=== PATIENT | female | born 1965 | race Caucasian/White ===

== ENCOUNTER 2020-07-17 16:32 | Outpatient (REF) | payer OTHER, SELFPAY | END 2020-07-17 16:33 | disposition home or self-care (01) | LOC: HO.LAB 16:32 | PROVIDERS: PCP Internal Medicine; Visit Provider Internal Medicine | DX: Z20.828 Contact with and (suspected) exposure to other viral communicable diseases (principal) | CPT/HCPCS: 36415; 87635 ==

== ENCOUNTER 2022-04-23 09:50 | Emergency (ER) | payer BC, SELFPAY ==
[2022-04-23 09:52] VITALS: BP 156/91; PULSE 72; RESP 19; TEMP 36.6; O2SAT 98; BMI 41.1
[2022-04-23 15:27] VITALS: BP 131/77; PULSE 64; RESP 18; TEMP 36.9
--- NOTE | 2022-04-23 15:46 | ED.HA ---
HPI - Headache General Chief Complaint: Headache Stated Complaint: Migraine Time Seen by Provider: 04/23/22 15:11 Source: patient Mode of arrival: ambulatory Limitations: no limitations History of Present Illness HPI Narrative: patient comes emergency room complaining of a migraine headache for 2 days. Patient took sumatriptan without any relief. Patient states that usually sumatriptan is able to help with her migraine headaches, takes propanolol to prevent migraines. Earlier today she was very nauseous, no vomiting. Patient states the headache is on the left side. Related Data Previous Rx's Medication Instructions Recorded ketorolac 10 mg tablet 10 mg PO TID PRN pain #7 tabs 04/23/22 metoclopramide HCl 10 mg tablet 10 mg PO BID PRN nausea and 04/23/22 (Reglan) vomiting #7 tabs Allergies Allergy/AdvReac Type Severity Reaction Status Date / Time No Known Allergies Allergy Unverified 06/29/20 19:08 [No Known Allergies*] Review of Systems Review of Systems: Constitutional : No Weight loss, No Fever, No Chills, No Night Sweats, No Fatigue, No Malaise ENT/Mouth : No Hearing loss, No Ear Pain, No Nasal Congestion, No Sinus Pain, No Hoarseness, No sore throat, No Rhinorrhea, No Swallowing Difficulty Eyes: No Eye Pain, No Swelling, No Redness, No Foreign Body, No Discharge, No Vision Changes Cardiovascular : No Chest Pain, No SOB, No Dyspnea on Exertion, No Orthopnea, No Edema, No Palpitations Respiratory : No Cough, No Sputum, No Wheezing, No Smoke Exposure, No Dyspnea Gastrointestinal : No Nausea, No Vomiting, No Diarrhea, No Constipation, No abdominal Pain, No Hematochezia, No Melena Genitourinary : no irregular bleeding, No Dysuria, No Urinary Frequency, No Hematuria, No Urinary Incontinence, No Urgency, No Flank Pain, No Urinary Flow Changes, No Hesitancy Musculoskeletal : No joint pain, No Myalgias, No Joint Swelling Skin : No Skin Lesions, No rash Neuro : No Weakness, No Numbness, No Paresthesias, No Loss of Consciousness, No Dizziness, Complaining of a left-sided migraine headache Psych : No Anxiety/Panic, No Depression, No SI/HI/AH/VH, No Social Issues, Heme/Lymph: No Bruising, No Bleeding,No Lymphadenopathy Endocrine : No Polyuria, No Polydipsia, No Temperature Intolerance [facility] Past Medical History Medical History Migraine headache Social History Social History Alcohol intake: never Patient Tobacco Use Status: Former Tobacco user Use of substances other than those prescribed or required for medical reasons: No Advance Directives: Yes Advance Directives Information Provided: Yes Advance Directives on File: No Patient : No Physical Exam Vital Signs: Vital Signs: Last Vital Signs Temp 98.4 F 04/23/22 15:27 Pulse 64 04/23/22 15:27 Resp 18 04/23/22 15:27 BP 131/77 04/23/22 15:27 Pulse Ox 98 04/23/22 09:52 O2 Del Method 04/23/22 15:27 O2 Flow Rate 96 04/23/22 15:27 BMI result Body Mass Index 41.1 Const: Other: Appearance: Alert. Oriented X3. looks uncomfortable, tearful Eyes: Pupils equal, round and reactive to light. ENT: Pharynx normal. Neck: Normal inspection. Neck supple. No lymph nodes noted. No crepitus CVS: Normal heart rate and rhythm. Pulses normal. Normal S1 and S2 Respiratory: No respiratory distress. Breath sounds normal. No Wheezing. No rales Abdomen: Soft and nontender. No rigidity. No distention. Skin: Skin warm and dry. Normal skin color. Normal skin turgor. Extremities: No lower extremity edema. No Lacerations. No Rash Neuro: Oriented X 3. No motor deficit. No sensory deficit. Moving all extremities. No slurred speech. CN 2 through 12 grossly intact Psych: calm, cooperative, tearful Course Course Course Narrative: patient is getting IV fluids, Toradol, Reglan and diphenhydramine after treatment, patient states she feels much better, patient has a 1 or 2/10 headache, no longer crying, overall feels good Discharge Plan Discharge Clinical Impression: Migraine Patient Disposition: Home, Self-Care Instructions: Migraine Headache (ED) Additional Instructions: Please follow-up with your primary care physician tomorrow. If you have any worsening or new symptoms, please return to the emergency room or call 911 Prescriptions: New ketorolac 10 mg tablet 10 mg PO TID PRN (Reason: pain) Qty: 7 0RF Rx Instructions: do not use this medication with NSAIDs /Aleve /ibuprofen, only Tylenol or sumatriptan metoclopramide HCl [Reglan] 10 mg tablet 10 mg PO BID PRN (Reason: nausea and vomiting) Qty: 7 0RF Rx Instructions: take together with Toradol/ketorolac p.r.n. migraine headache
[2022-04-23] MEDS: Ketorolac Tromethamine 30 MG/ML VIAL IVPUSH (15:48)
[2022-04-23] MEDS: Metoclopramide HCl 10 MG/2 ML VIAL IVPUSH (15:49)
[2022-04-23] MEDS: 0.9 % Sodium Chloride 1,000 ML 999 ML IVCONT (15:49)
[2022-04-23] MEDS: diphenhydrAMINE HCL 50 MG/ML VIAL 25 MG IVPUSH (15:49)
[2022-04-23 18:04] VITALS: BP 127/72; PULSE 73; RESP 16; TEMP 36.9; O2SAT 97
== END 2022-04-23 18:48 | disposition home or self-care (01) ==
PROVIDERS: Emergency Provider Emergency Medicine; PCP Internal Medicine
DX: G43.909 Migraine, unspecified, not intractable, without status migrainosus (principal); Z79.899 Other long term (current) drug therapy; Z87.891 Personal history of nicotine dependence
CPT/HCPCS: 96361; 96374; 96375; 99284; J1200; J1885; J2765

== ENCOUNTER 2025-08-03 09:30 | Outpatient (AMB) | payer BC, SELFPAY ==
--- NOTE | 2025-08-03 09:36 | MHC.OFFVIS ---
Intake Visit Reasons: discuss botox injection Allergies No Known Allergies (No Known Allergies*) Allergy (Unverified 11/13/22 16:14) HPI Comments Details: 59 yo woman with h/o neck surgery probably for cervical fusion, renal stones, anxiety, obesity, TEENA On CPAP, and chronic intractable frequent migraine type headache. She was unable to tolerate CPAP machine and was not using it. 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 Mcdowell. She is presenting with chronic migraines. The migraines have increased in frequency, with approximately 20 days of headaches each month. Pain typically localizes to the back of the head, with symptoms severe enough to cause nocturnal awakenings. Pressure sensations are also reported. The patient has trialed several prophylactic medications including Topamax, propranolol, and Depakote without significant relief. Occipital nerve blocks previously provided short-term alleviation. Additionally, the patient has a history of meningioma, which has been stable without significant growth. The management plan has been to monitor this condition, with another check scheduled in a year to a year and a half. The meningioma has not caused symptoms, and surgical removal is not currently planned. The patient is concerned about her family history, as her mother at 50 from a brain tumor. This familial history increases her anxiety about her own condition, particularly given the recent pattern of her migraines. [facility] Medical History (Updated 08/03/25 @ 09:43 by Jourdan Mehta MD) Anxiety Insomnia Hypothyroid Migraine headache Social History (System 11/13/22 @ 16:14 by Minnie Jaffe) Alcohol intake: never Patient Tobacco Use Status: Former Tobacco user Review of Systems Narrative - Neurological: Reports chronic migraines with approximately 20 headaches per month and pressure sensations in the head. - Family History: Positive for brain tumor in the mother. - Medications: Reports unsuccessful trials of Topamax, propranolol, and Depakote. Office Meds methylprednisolone acetate 40 mg/mL suspension for injection Performing Provider: Jourdan Mehta MD Performing Location: [facility] Administered by: Jourdan Mehta MD on 08/03/25 10:01 Dose Route Admin Location Dispensed Lot Number Expiration Date [facility] [employer] 40 mg IM 1 mL [id number] [employer] Total Dispensed Waste 1 mL 0 % Assessment & Plan Assessment & Plan (1) Migraine headache: Comment: Meds tried: Topiramate, propranolol, sumatriptan, verapamil, Depakote, Emgality MRI C spine at [facility] in Jun 2024: C 5/6 central disc with flattening of cord but mod stenosis and no cord signal. MRI brain [facility] at [facility] in Aug 2023: R CP angle meningioma Code(s): G43.909 - Migraine, unspecified, not intractable, without status migrainosus Category: Medical Qualifiers: Intractability: not intractable Migraine type: without aura Status migrainosus presence: without status migrainosus Qualified Code(s): G43.009 - Migraine without aura, not intractable, without status migrainosus (2) Meningioma: Code(s): D32.9 - Benign neoplasm of meninges, unspecified Category: Medical (3) Occipital neuralgia: Code(s): M54.81 - Occipital neuralgia Category: Medical Qualifiers: Laterality: bilateral Qualified Code(s): M54.81 - Occipital neuralgia Plan I engaged in a discussion with the patient regarding her chronic migraines and the unsuccessful outcomes from previous pharmacological interventions, such as Topamax, propranolol, and Depakote. Given the nature of insurance protocols, making a case for Botox as a preventive treatment is warranted. I addressed her meningioma's current asymptomatic state and reiterated the plan for periodic assessments. I also acknowledged her familial history of brain tumors and the anxiety surrounding it. I informed her about the necessity of meeting insurance prerequisites, and we will push forward with her treatment accordingly, emphasizing the continuation of occipital nerve block injections to manage pain in the interim. Orders: Orders AMB Methylprednisolone Acetate Injection Today M54.81 - Occipital neuralgia Medications: Changed From sumatriptan succinate take 1 tab at onset of headache; if no relief may repeat 1 tab after at least 2 hrs; max = 4 tabs/24 hr PO 10 tabs 0RF To sumatriptan succinate 50 mg orally one a day as needed; 10 tabs 5RF Coding Level of Care Code Est Pt Level 4 (94365) Diagnoses Migraine without aura and without status migrainosus, not intractable G43.009 Intractability: not intractable Migraine type: without aura Status migrainosus presence: without status migrainosus Meningioma D32.9 Bilateral occipital neuralgia M54.81 Laterality: bilateral
--- OUTSIDE RECORDS SUMMARY | 2025-08-03 10:54 | XMS_ITS | Clinical Summary ---
Author Organization [facility] Address [address] [place] [id number] Phone Care Team Providers Care Fern Gatherer Name Role Phone Jenelle Rosas MD Primary Care Prov ider Social History Tobacco Use Types Packs/Day Years Used Date Smoking Tobacco: Never Assessed Comments Unknown Sex and Gender Information Value Date Recorded Sex Assigned at Not on file Legal Sex Female 11:20 AM EDT Gender Identity Not on file Sexual Orientation Not on file Plan of Treatment Not on file Medical Devices Not on file Insurance [employer] [place] [employer] PPO [place] [address] [place] [address] MEDICARE PPO BLUE REPLACEMENT [employer] [place] [employer] BLUE [employer]EMENT Care Teams Fern Gatherer Relationship Specialty Start Date End Date Jenelle Rosas MD [address] [place] [id number] PCP - General 04/05/24 Additional Source Comments The information contained in this document represents components of the legal health record. It is not the complete legal health record.[facility]
--- OUTSIDE RECORDS SUMMARY | 2025-08-03 10:54 | XMS_ITS | Clinical Summary ---
Author Organization [facility] [address] [place] [address] Address [address] [facility] [place] Phone Care Team Providers Care Chef Teacher Name Role Phone Jenelle Rosas MD Primary Care Prov ider Allergies Active Allergy Reactions Criticality Noted Date Comments Adhesive Rash 01/18/2025 itching Medications albuterol HFA (PROAIR HFA ; PROVENTIL HFA ; VENTOLIN HFA) 90 mcg/actuation inhaler Inhale 2 Puffs into the lungs every 4 hours as needed for Cough, Wheezing or Shortness of Breath. 04/21/20 24 Active SUMAtriptan (IMITREX) 25 mg tablet Take 2 tablets (50 mg total) by mouth 1 (one) time if needed. 11/21/19 24 Active acetaminophen (TYLENOL) 500 mg tablet Take 2 Tablets by mouth. 08/29/20 23 Active umeclidinium-v ilanteroL (Anoro Ellipta) 62.5-25 mcg/actuation inhaler Inhale 1 puff by mouth 1 (one) time each day. 1 each 2 08/31/20 24 Active LORazepam (ATIVAN) 0.5 mg tablet Take 1 tablet (0.5 mg total) by mouth 1 (one) time each day if needed for anxiety. Max Daily Amount: 0.5 mg 15 tablet 09/03/20 24 Active escitalopram (LEXAPRO) 20 mg tablet TAKE 1 TABLET BY MOUTH EVERY DAY IN THE MORNING 90 tablet 3 12/06/19 25 Active levothyroxine (SYNTHROID, LEVOTHROID) 125 mcg tablet TAKE 1 TABLET BY MOUTH EVERY DAY 90 tablet 1 02/09/20 25 Active tirzepatide, weight loss, (Zepbound) 10 mg/0.5 mL injection Inject 0.5 mL (10 mg total) under the skin every 7 (seven) days. 2 mL 07/24/20 25 025 Active bromfenac (XIBROM) 0.09 % ophthalmic solution INSTILL 1 DROP ONCE DAILY TO INTO LEFT EYE EVERY DAY 02/03/20 24 025 Discontinued(Th erapy completed) ibuprofen (ADVIL,MOTRIN) 600 mg tablet TAKE 1 TABLET BY MOUTH 3 TIMES A DAY NEEDED PAIN , MODERATE 11/21/19 025 Discontinued(Th erapy completed) amoxicillin (AMOXIL) 500 mg tablet TAKE 4 TABLETS BY MOUTH BEFORE DENTAL WORK 11/24/19 025 Discontinued( erapy completed) tirzepatide, weight loss, (Zepbound) 7.5 mg/0.5 mL injection Inject 0.5 mL (7.5 mg total) under the skin every 7 (seven) days. 2 mL 07/01/20 25 025 Discontinued Hospital, Clinic, or Other Facility Administered Medication Ordered Dose Route Frequency Start Date End Date Status cyanocobalamin (VITAMIN B-12) injection 1,000 mcgIndications:Vitamin B12 deficiency disease 1000 mcg IM Every 30 days 03/03/2025 08/30/2025 Active Active Problems Problem Noted Date Diagnosed Date Class 3 severe obesity with body mass index (BMI) of 40.0 to 44.9 in adult (CMS/[facility] V24, [facility] V28) 08/06/2024 Assessment & Plan (01/13/2025 12:25 PM EDT): Class 2 obesity due to exces s calories without serious comorbidity with body mass index (BMI) of 37.0 to 37.9 in adult 08/06/2024 Vitamin B12 deficiency disease 07/15/2024 Assessment & Plan (01/13/2025 12:25 PM EDT): Orders: Vitamin B12; Future Dyspnea on exertion 11/06/2022 Overview (08/06/2024): Last Assessment & Plan: Likely multifactorial due to mild COPD, extrathoracic restriction. I have ordered an echocardiogram. Postmenopausal bleeding 06/21/2022 Overview (08/06/2024): Last Assessment & Plan: I recommended US to ensure no endometrial pathology. Explained this could be a sign of precancer or cancer, or a benign process. She voiced understanding and agreed to schedule this. Otitis media 03/29/2021 Allergic conjunctivitis of both eyes 02/02/2021 Overview (08/06/2024): Last Assessment & Plan: No redness, but eyes persistently watery and itchy. OTC Naphcon-A partially effective only. Trial of Patanol twice daily. Let me know if not covered - we can try ketotifen eyedrops which are [id number]. Migraine without status migrainosus, not intract able 02/02/2021 Overview (08/06/2024): Last Assessment & Plan: Continue Topamax for prevention, Imitrex as needed. COPD (chronic obstructive pu lmonary disease) ([facility] V24, [facility] V28) 01/22/2021 Overview (08/06/2024): Last Assessment & Plan: Is stable from the pulmonary standpoint of view She only uses albuterol as needed She uses maximum to 3 times a week I will discontinue the Anoro Continue with lung cancer screening CT Return to clinic in 8 months Assessment & Plan (07/15/2025 1:54 PM EDT): No recent exacerbations. Encouraged to keep her appointments. Continue taking albuterol as needed and Anoro Ellipta stabilizer medication. Assessment & Plan (01/13/2025 12:25 PM EDT): Pulmonary nodules 01/22/2021 Overview (08/06/2024): Last Assessment & Plan: Continue with lung cancer screening CT. Latest one was RADS category 2 TEENA treated with BiPAP 01/06/2020 Fibromyalgia 09/19/2014 Overview (08/06/2024): First diagnosed by rheumatology 2011. Tried Cymbalta and Lyrica, ineffective/adverse effects. Assessment & Plan (07/15/2025 3:47 PM EDT): Management options were discussed today. She is currently on SSRI. Referred to rheumatology but provider with this condition. Will continue Lexapro as above, recommended regular exercise, CBT with her therapist, and physical therapy. A referral was placed for physiatry evaluation. Orders: Ambulatory referral to Physical Medicine Rehab; Future Depression, major, recurrent, in remission ([facility] V24) 07/21/2014 Assessment & Plan (07/15/2025 1:54 PM EDT): Patient with a regular level of performance, no SI, HI, will continue Lexapro. Follows with [facility]. Assessment & Plan (01/13/2025 12:25 PM EDT): Panic disorder 07/21/2014 Ovarian cyst 05/03/2010 Overview (08/06/2024): On left side since 2009. In 2018 was measuring 2.8 cm, then in 2021 3.7 cm, remains simple. Normal CA 125 in 2019, pending in 2021. Last Assessment & Plan: Reviewed Dr. Roe's recommendations to have repeat CA 125, CEA and repeat US in one year, but likely benign. Plantar fasciitis 04/25/2010 Bursitis of hip 03/27/2009 Overview (08/06/2024): seen at [facility]. has gotten 2 cortisone injections. Angiodysplasia of colon 01/05/2008 Overview (08/06/2024): Small, nonbleeding angiodysplasia of the cecum identified at colonoscopy 12/09/2007. IBS (irritable bowel syndrome) 01/05/2008 Overview (08/06/2024): Negative colonoscopy, negative upper GI endoscopy 12/09/2007. Also symptoms suggesting nonulcer dyspepsia. Helicobacter pylori antibody positive 11/16/2007 Overview (08/06/2024): Treated 11/20. EGD normal and biopsies negative for H. Pylori 12/09/2007. Degeneration of cervical intervertebral disc Overview (08/06/2024): Hx of surgery ~ 2008 Hypothyroidism 07/31/2006 Overview (08/06/2024): Last Assessment & Plan: Well-controlled. Check TSH annually. Continue current regimen. Assessment & Plan (07/15/2025 1:54 PM EDT): Currently on levothyroxine 125 mcg a day. Last TSH within normal limits. We will continue levothyroxine at the same dose. Will recheck levels. Assessment & Plan (01/13/2025 12:25 PM EDT): Orders: Thyroid stimulating hormone; Future Basic metabolic panel; Future Lipid panel with reflex to direct LDL; Future Reactive depression 07/31/2006 Overview (08/06/2024): Last Assessment & Plan: I recommended she continue to follow with PCP and take some time for herself. Continue exercise in the pool as able. Encounters Date Type Department Care Team Description 07/22/2025 Telephone Bariatric Surgery - [place] [address] [facility] [address] [facility] [address] [place] [address] Jasmine Kumar MD 07/15/2025 1:15 PM EDT Office Visit Adult Medicine [address] [phone] Jenelle Rosas MD Hypothyroidism, unspecified type (Primary Dx); Chronic obstructive pulmonary disease with acute exacerbation (CMS/HCC V24, CMS/HCC V28); Depression, major, recurrent, in remission (CMS/HCC V24); Fibromyalgia; Screening for depression 07/13/2025 10:15 AM EDT Clinical Support [address] [phone] Vitamin B12 deficiency disease (Primary Dx) 06/30/2025 Telephone Bariatric [address] [phone] Jasmine Kumar MD 06/15/2025 10:15 AM EDT Clinical Support [address] [phone] Vitamin B12 deficiency disease (Primary Dx) 06/02/2025 9:15 AM EDT Office Visit [address] [phone] Jasmine Kumar MD Class 2 obesity due to excess calories with body mass index (BMI) of 36.0 to 36.9 in adult, unspecified whether serious comorbidity present (Primary Dx) 06/02/2025 Telephone Bariatric Surgery [address] [phone] Jasmine Kumar MD 05/31/2025 [place] [facility] [address] [phone] Jasmine Kumar MD 05/18/2025 1:30 PM EDT Clinical Support [address] [phone] Vitamin B12 deficiency disease (Primary Dx) from Last 3 Months Immunizations Immunization Administration Dates Next Due Influenza Quadravalent, MDCK , 0.5ml, preservative free (Flucelvax) 6mo and older 08/06/2022,07/28/2020,06/28/2019 Influenza trivalent, 0.5mL, preservative free (Fluarix; FluLaval; Fluzone) ages 6mo and older (Afluria) 3 years and older 07/15/2024,10/11/2023,07/05/2021,2017,06/20/2017 Influenza, Unspecified 10/11/2023,2020,06/28/2019,2017 PPD Test 03/02/2014,03/02/2013,03/04/2012 Td Tetanus diptheria (Tdvax) 7yo and older 11/13/2018 Tdap Tetanus diptheria acell ular pertussis (Boostrix; Adacel) 7yo and older 06/20/2017,01/20/2008 Surgical History Surgery Date Site/Laterality Comments TUBAL LIGATION PROCEDURE: HISTORICAL TUBAL LIGATION WRIST MASS EXCISION Right PROCEDURE: AK EXCISION GANGLION WRIST DORSAL/VOLAR PRIMARY ESOPHAGOGASTRODUODENOSCOPY 12/09/2007 PROCEDURE: AK EGD TRANSORAL BIOPSY SINGLE/MULTIPLE; COMMENT: H. pylori negative COLONOSCOPY 12/09/2007 PROCEDURE: HISTORICAL COLONOSCOPY; COMMENT: Bx: wnl. Small angiodysplasia of the cecum. NECK SURGERY 02/2008 PROCEDURE: HISTORICAL NECK SURGERY; COMMENT: cervical discectomy; nerve ablations KNEE ARTHROSCOPY W/ MENISCAL REPAIR 2013 Bilat eral PROCEDURE: AK ARTHROSCOPY KNEE W/MENISCUS RPR MEDIAL/LATERAL; COMMENT: [facility] COLONOSCOPY 03/27/2018 PROCEDURE: HISTORICAL COLONOSCOPY; COMMENT: 7 mm ascending colon polyp: tubular adenoma. OTHER SURGICAL HISTORY 2007 PROCEDURE: AK ARTHRD ANT INTERBODY MIN DSC CRV BELOW C2; COMMENT: [facility]; Dr. Laws OTHER SURGICAL HISTORY 2013 PROCEDURE: AK ARTHRD ANT INTERBODY MIN DSC CRV BELOW C2; COMMENT: 2 surgeroies @ [facility]; Dr. Keys BREAST BIOPSY Left PROCEDURE: BX BREAST; PERC NEEDLE CORE W/IMAG GUID; COMMENT: b9 FINE NEEDLE ASPIRATION Left PROCEDURE: FINE NDLE ASPRTN W/IMAGING GUIDANCE; COMMENT: fna benign TOTAL KNEE ARTHROPLASTY 11/28/2021 Right PROCEDURE: HISTORICAL TOTAL KNEE REPLACE; COMMENT: Dr. Harris Medical History Medical History Date Comments Unspecified hypothyroidism 07/31/2006 DX:Un specified hypothyroidism Depressive disorder, not els ewhere classified 07/31/2006 DX:Depressive disorder, not elsewhere classified Allergic rhinitis, cause unspecified 05/26/2007 DX:Allergic rhinitis, cause unspecified Helicobacter pylori antibody positive 11/16/2007 DX:Helicobacter pylori antibody positive; COMMENT: Treated 11/20; gastric bx negative 12/09/2007. Angiodysplasia of colon 01/05/2008 DX:Angio dysplasia of colon; COMMENT: Small, nonbleeding angiodysplasia of the cecum identified at colonoscopy 12/09/2007. IBS (irritable bowel syndrome) 01/05/2008 D X:IBS (irritable bowel syndrome); COMMENT: Negative colonoscopy, negative upper GI endoscopy 12/09/2007. Family History Medical History Relation Name Comments Testicular cancer Brother prostate a nd kidney cancer; diabetes No Known Problems Daughter Diabetes Father Heart failure Father Prostate cancer Father Diabetes Maternal Grandmother Stroke Maternal Grandmother Brain cancer Mother Diabetes Sister 1 No Known Problems Son Breast cancer Neg Hx Colon cancer Neg Hx Heart attack Neg Hx Ovarian cancer Neg Hx Uterine cancer Neg Hx Relation Name Status Comments Brother Alive Daughter Alive healthy Father prostate ca or colon cancer, diabetes and congestive heart failure Maternal Grandfather unknown Maternal Grandmother diabete s, CVA Mother brain cancer Paternal Grandfather unknown Paternal Grandmother unknown Sister 1 Alive Sister 2 Alive diabetes Sister 3 Alive two other siste rs healthy Son Alive healthy Social History Tobacco Use Types Packs/Day Years Used Date Smoking Tobacco: Former Cigarettes Q uit: 12/26/2016 Smokeless Tobacco: Never Tobacco Cessation:Counseling Given: Not Answered Alcohol Use Standard Drinks/Week Comments No 0 (1 standard drink = 0.6 oz pur e alcohol) Housing Instability Answer Date Recorde d Are you worried that in the next 2 months you may not have stable housing? No 08/31/2024 Food Access & Nutrition Answer Date Rec orded Do you have access to a vari ety of food including fruits and vegetables? Yes 08/31/2024 Access to Healthcare Answer Date Record ed Within the last 3 months, pete zhao many times did you visit the emergency department for your medical care? 0 08/31/2024 Health Literacy Answer Date Recorded How often do you need to hav e someone help you when you read instructions, pamphlets, or other written material from your doctor or pharmacy? Never 08/31/2024 Caregiver: How often do you need to have someone help you when you read instructions, pamphlets, or other written material from your doctor or pharmacy? Not on file 08/31/2024 Financial Risk Answer Date Recorded How hard is it for you to pa y for the very basics like food, housing, medical care, and air conditioning / heating? Not very hard 08/31/2024 Transportation Answer Date Recorded Has the lack of transportati on kept you from meetings, work, or from getting things needed for daily living? No Has the lack of transportati on kept you from medical appointments or from getting medications? No 08/31/2024 Social Isolation Answer Date Recorded How often do you feel lonely or isolated from th ose around you? Rarely 08/31/2024 Food Risk Answer Date Recorded Within the past 12 months we worried whether our food would run out before we got money to buy more. Never true 08/31/2024 Within the past 12 months th e food we bought just didn't last and we didn't have money to get more. Never true 08/31/2024 Dependent Care Answer Date Recorded Do you need help finding or paying for care for your loved ones. For example, child development consultant or elderly care for an older adult? No 08/31/2024 Education Answer Date Recorded Do you think completing more education or training, like finishing a GED, going to college, or learning a trade, would be helpful for you? No 08/31/2024 Employment and Income Answer Date Recor ded During the last four weeks, have you been actively looking for work? No 08/31/2024 Living Situation Answer Date Recorded What is your living situation? Unrecognized valu e 08/31/2024 Comments No Sex and Gender Information Value Date Recorded Sex Assigned at Not on file Legal Sex Female 10:51 AM EST Gender Identity Not on file Sexual Orientation Not on file Obstetrics History Para Term AB IAB SAB Ectopic Multiple Livin g Live Births 2 2 2 2 Date Outcome GA Total Labor Labor/2nd/3rd Weight Sex Type Anes PTL Lillian A1 A5 Name Clin Term Term Last Filed Vital Signs Vital Sign Reading Time Taken Comments Blood Pressure 120/70 07/15/2025 1:52 PM EDT Pulse 80 07/15/2025 1:22 PM EDT Temperature 36.4 C (97.5 F) 07/15/2025 1:22 PM EDT Respiratory Rate 15 07/15/2025 1:22 PM EDT Oxygen Saturation 98% 07/15/2025 1:22 PM EDT Inhaled Oxygen Concentration - - Weight 97.1 kg (214 lb) 07/15/2025 1:22 PM EDT Height 165.1 cm (5' 5 ) 07/15/2025 1:22 PM EDT Body Mass Index 35.61 07/15/2025 1:22 PM EDT Plan of Treatment Upcoming Encounters Date Type Department Care Team (Late st Contact Info) Description 08/10/2025 10:15 AM EDT Clinical Support Adult Medicine [address] [phone] 10/17/2025 9:40 AM EST Appointment Radiology Department - [address] [phone] 12/06/2025 8:00 AM EST Office Visit Bariatric Surgery - [address] [place] [phone] Jasmine Kumar MD [address] [place] [phone] 02/27/2026 2:00 PM EDT Office Visit Adult Medicine [address] [phone] Jenelle Rosas MD [address] [place] [address] Health Maintenance Due Date Last Done Comments Pneumococcal Vaccine: 50+ Years (1 of 2 - PCV) 1982 RSV Immunization Adult Patients (1 - Risk 50-74 years 1-dose series) 2013 Zoster Vaccines (1 of 2) 2013 Medicare Annual Wellness Visit 09/21/2022 COVID-19 Vaccine ( - season) 2025 10/18/2021, 02/15/2021, 01/18/2021 Social Influencers of Health Screening 08/31/2025 08/31/2024 Breast Cancer Screening 10/14/2026 10/14/19 25, 09/30/2023, 08/23/2022, Additional history exists Cervical Cancer Screening: HPV 06/21/2027 06/21/2022 DTaP,Tdap,and Td Vaccines (4 - Td or Tdap) 11/13/2028 11/13/2018, 06/20/2017, 01/20/2008 Colorectal Cancer Screening: Colonoscopy 02/08/2029 02/09/2024 Cholesterol Screening (Lipid Panel) 01/17/2030 01/17/2025, 08/06/2023 HIV Screening Completed 12/30/2016 Hepatitis C Screening Completed 12/30/2016 Depression Screening Completed 07/15/2025 Influenza Vaccine Completed 07/29/2025, , 10/11/2023, Additional history exists HIB Vaccines Aged Out No longer eligi ble based on patient's age to complete this topic HPV Vaccines Aged Out No longer eligi ble based on patient's age to complete this topic Hepatitis A Vaccines Aged Out No long er eligible based on patient's age to complete this topic Hepatitis B Vaccines Aged Out No long er eligible based on patient's age to complete this topic IPV Vaccines Aged Out No longer eligi ble based on patient's age to complete this topic MMR Vaccines Aged Out No longer eligi ble based on patient's age to complete this topic Meningococcal ACWY Vaccine Aged Out N o longer eligible based on patient's age to complete this topic Meningococcal B Vaccine Aged Out No l onger eligible based on patient's age to complete this topic RSV Immunization Patients Under 20 months Aged Out No longer eligible based on patient's age to complete this topic Varicella Vaccines Aged Out No longer eligible based on patient's age to complete this topic Procedures Procedure Name Priority Date/Time Associated Diagnosis Comments LIPID PANEL WITH REFLEX TO DIRECT LDL Routine 01/17/2025 10:57 AM EDT Hypothyroidism, unspecified type MG MAMMO DIGITAL SCREENING W MAIK BILAT Routine 10/14/2024 10:34 AM EST Encounter for screening mammogram for breast cancer COLONOSCOPY Routine 02/09/2024 HPV Routine 06/21/2022 HEPATITIS C SCREENING Routine 12/30/2016 HIV SCREENING Routine 12/30/2016 from Last 3 Months or Most Recently Relevant to Health Maintenance Results * (ABNORMAL) Lipid panel with reflex to direct LDL (01/17/2025 10:57 AM EDT) Cholesterol 237(H) 0 - 200 mg/dL LAB CHEMISTRY METHOD 01/17/2025 4:31 PM EDT [facility] Triglycerides 198(H) 0 - 150 mg/dL LAB CHEMISTRY METHOD 01/17/2025 4:31 PM EDT [facility] HDL 67 >=40 mg/dL LAB CHEMISTRY METHOD 01/17/2025 4:31 PM EDT [facility] LDL Calculated 130(H) 0 - 100 mg/dL LAB CHEMISTRY METHOD 01/17/2025 4:31 PM EDT [facility] VLDL Cholesterol Richard 39.6 mg/dL LAB CHEMISTRY METHOD 01/17/2025 4:31 PM EDT [facility] Non HDL Chol. (LDL+VLDL) 170(H) <145 mg/dL LAB CHEMISTRY METHOD 01/17/2025 4:31 PM EDT [facility] Chol/HDL Ratio 3.5 0.0 - 4.4 LAB CHEMISTRY METHOD 01/17/2025 4:31 PM EDT [facility] Blood Venous blood specimen / Unknown Venipuncture / Unknown 01/17/2025 10:57 AM EDT 01/17/2025 10:57 AM EDT us Jenelle Rosas MD LAB BLOOD ORDERABL ES Final Result [facility] [address] [place] [address], [place] [phone] * MG Mammo Digital Screening w Maik bilat (10/14/2024 10:34 AM EST) Anatomical Region Laterality Modality Breast Bilateral Mammography 10/14/2024 1:04 PM EST Impressions 10/14/2024 1:08 PM EST Benign. BI-RADS CATEGORY: 2 - BENIGN RECOMMENDATION: Screening bilateral mammogram is recommended in 1 year. Mammo Location: [facility], [address] [place] [address], [phone], . -------- FINAL REPORT -------- Dictated By: Bruna Latif Dictated Date: 10/14/2024 13:04 ET Assigned Physician: Bruna Latif Reviewed and Electronically Signed By: Bruna Latif Signed Date: 10/14/2024 13:08 ET Workstation ID: [id number] Transcribed By: Self Edit Transcribed Date: 10/14/2024 13:04 ET Narrative 10/14/2024 1:08 PM EST CLINICAL: 59 years old, Female, routine annual exam. COMPARISON: Mammograms dating back to 08/07/2020 with most recent of 09/30/2023 TECHNIQUE: Bilateral MLO and CC views were obtained digitally with 3-D mammogram (digital breast tomosynthesis). Computer-aided detection was utilized in evaluation of this exam (CAD). FINDINGS: There is no evidence of suspicious mass or architectural distortion. No worrisome calcifications are evident. There are benign calcifications scattered in both breasts. There is a biopsy clip in the upper outer left breast. There has been no significant change from prior exam(s). BREAST DENSITY: C - The breasts are heterogeneously dense which may obscure small masses. Procedure Note Bruna Latif MD - 10/14/2024 CLINICAL: 59 years old, Female, routine annual exam. COMPARISON: Mammograms dating back to 08/07/2020 with most recent of09/30/2023 TECHNIQUE: Bilateral MLO and CC views were obtained digitally with 3-Dmammogram (digital breast tomosynthesis). Computer-aided detection wasutilized in evaluation of this exam (CAD). FINDINGS: There is no evidence of suspicious mass or architectural distortion. Noworrisome calcifications are evident. There are benign calcificationsscattered in both breasts. There is a biopsy clip in the upper outer leftbreast. There has been no significant change from prior exam(s). BREAST DENSITY: C - The breasts are heterogeneously dense which mayobscure small masses. IMPRESSION: Benign. BI-RADS CATEGORY: 2 - BENIGN RECOMMENDATION: Screening bilateral mammogram is recommended in 1 year. Mammo Location: [facility], [address] [place] [address], [id number], . -------- FINAL REPORT -------- Dictated By: Bruna Latif Dictated Date: 10/14/2024 13:04 ET Assigned Physician: Bruna Latif Reviewed and Electronically Signed By: Bruna Latif Signed Date: 10/14/2024 13:08 ET Workstation ID: [id number] Transcribed By: Self Edit Transcribed Date: 10/14/2024 13:04 ET Jenelle Rosas MD IMG BI PROCEDURES Final Result * Colonoscopy (02/09/2024) Pathologist [facility] Colonoscopy no inerpretation , abstracted Anatomical Region Laterality Modality Other [facility] Provider HEALTH MAINTENANCE Final Result * Cervical Cancer Screening: HPV (06/21/2022) Pathologist [facility] Cervical Cancer Screening: HPV negative,a bstracted [facility] Provider HEALTH MAINTENANCE Final Result * HIV Screening (12/30/2016) [facility] HIV Screening abstracted [facility] Provider HEALTH MAINTENANCE Final Result * Hepatitis C Screening (12/30/2016) [facility] Hepatitis C Screening abstracted [facility] Provider HEALTH MAINTENANCE Final Result from Last 3 Months or Most Recently Relevant to Health Maintenance Insurance [employer] - [place] MEDICARE ADVANTAGE Care Teams Chef Teacher Relationship Specialty Start Date End Date Jenelle Rosas MD [address] [place] [phone] PCP - General Internal Medicine 08/31/24
--- OUTSIDE RECORDS SUMMARY | 2025-08-03 10:54 | XMS_ITS | Encounter Summary ---
Author Organization [facility] Address [address] [place] [address] Care Team Providers Care Back Wedger Name Role Phone Jenelle Rosas MD Primary Care Prov ider Encounter Details Date Type Department Care Team (Late st Contact Info) Description 04/07/2025 Lab Requisition [facility] - Main Lab [address] [facility] [place] [phone] Ember Peralta PA [address] [place] [address] Calculus of kidney Social History Tobacco Use Types Packs/Day Years Used Date Smoking Tobacco: Former Cigarettes Q uit: 12/26/2016 Smokeless Tobacco: Never Alcohol Use Standard Drinks/Week Comments No 0 [...] Record ed Within the last 3 months, ho w many times did you visit the emergency [...] care for your loved ones. For example, children's literature professor or elderly care for an older adult? [...] on file Sexual Orientation Not on file documented as of this encounter Plan of Treatment Upcoming Encounters Date Type Department Care Team (Late st Contact Info) Description 08/10/2025 10:15 AM EDT Clinical Support Adult Medicine [address] [phone] 10/17/2025 9:40 AM EST Appointment Radiology Department - [address] [phone] 12/06/2025 8:00 AM EST Office Visit Bariatric Surgery [facility] [address] [facility] [address] [place] [address] Jasmine Kumar MD [address] [place] [phone] 02/27/2026 2:00 PM EDT Office Visit Adult Medicine [facility] [address] [place], [place] [phone] Jenelle Rosas MD [address] [place] [address] documented as of this encounter Procedures Procedure Name Priority Date/Time Associated Diagnosis Comments PARATHYROID HORMONE INTACT Routine 04/07/2025 9:30 AM EDT Calculus of kidney documented in this encounter Results * Parathyroid hormone intact (04/07/2025 9:30 AM EDT) PTH 72.6 18.5 - 88.0 pcg/mL LAB CHEMISTRY METHOD 04/07/2025 1:45 PM EDT [facility] Blood Venous blood specimen / Unknown 04/07/2025 9:30 AM EDT 04/07/2025 12:33 PM EDT us Ember PEREZ LAB BLOOD ORDERABLES Final Res ult [facility] [address] [place] [address], documented in this encounter Visit Diagnoses Diagnosis Calculus of kidney documented in this encounter Additional Health Concerns Assessment Noted Time PHQ-9 Depression Total Score: 13 08/31/2 024 9:25 AM EST documented as of this encounter Care Teams Back Wedger Relationship Specialty Start Date End Date Jenelle Rossa MD [address] [place] [address] PCP - General Internal Medicine 08/31/24 documented as of this encounter
== END 2025-08-03 10:10 | disposition home or self-care (01) ==
LOC: HO.HSM 09:31
PROVIDERS: PCP Internal Medicine; Visit Provider Psychiatry & Neurology Neurology
DX: G43.009 Migraine without aura, not intractable, without status migrainosus (principal); D32.9 Benign neoplasm of meninges, unspecified; M54.81 Occipital neuralgia
CPT/HCPCS: 99214

== ENCOUNTER → 2025-08-03 09:30 | Outpatient (BNVA) | payer BC, SELFPAY | PROVIDERS: PCP Internal Medicine; Visit Provider Psychiatry & Neurology Neurology | DX: M54.81 Occipital neuralgia (principal); G43.009 Migraine without aura, not intractable, without status migrainosus; D32.9 Benign neoplasm of meninges, unspecified | CPT/HCPCS: 96372; J1010 ==

== ENCOUNTER 2025-09-07 10:26 | Outpatient (AMB) | payer BC, SELFPAY ==
--- OUTSIDE RECORDS SUMMARY | 2025-09-07 10:30 | XMS_ITS | Encounter Summary ---
Author Organization [facility] Address [address] [place] [address] Care Team Providers Care Electron Gun Assembler Name Role Phone Jenelle Rosas MD Primary Care Prov ider Encounter Details Date Type Department Care Team (Latest Contact Info) Description 09/07/2025 10:30 AM [facility] Clinical Support Adult Medicine [address] [address] Vitamin B12 deficiency disease (Primary Dx) Social History Tobacco Use Types Packs/Day Years Used Date Smoking Tobacco: Former Cigarettes 0 Q uit: 12/26/2016 Smokeless Tobacco: Never Alcohol [...] for your loved ones. For example, children's aide or elderly care for an older adult? [...] Care Team (Late st Contact Info) Description 10/05/2025 10:00 AM EST Clinical Support Adult Medicine [place] - [address] [phone] 10/17/2025 9:40 AM EST Appointment Radiology Department - [address] [phone] 12/06/2025 8:00 AM EST Office Visit Bariatric Surgery - [address] [place] [phone] Jasmine Kumar MD [address] [place] [phone] 02/27/2026 2:00 PM EDT Office Visit Adult Medicine [facility] [address] [place], [place] [phone] Jenelle Rosas MD [address] [place] [address] documented as of this encounter Visit Diagnoses Diagnosis Vitamin B12 deficiency disease- Primary Other B-complex deficiencies documented in this encounter Administered Medications Inactive Administered Medications - up to 3 most recent administrations Medication Order MAR Action Action Date Dose Rate Site cyanocobalamin (VITAMIN B-12) injection 1,000 mcg 1,000 mcg, intramuscular, Every 30 days, First dose on Kim 03/03/25 at 1400, For 6 dosesIndications:Vitamin B12 deficiency disease Given 09/07/2025 10:08 AM EST 1,000 mcg Right Deltoid Given 08/10/2025 10:08 AM EDT 1,000 mcg R ight Deltoid Given 07/13/2025 10:04 AM EDT 1,000 mcg R ight Deltoid documented in this encounter Additional Health Concerns Assessment Noted Time PHQ-9 Depression Total Score: 1 07/15/20 25 1:23 PM EDT documented as of this encounter Care Teams Electron Gun Assembler Relationship Specialty Start Date End Date Jenelle Rosas MD [address] [place] [address] PCP - General Internal Medicine 08/31/24 documented as of this encounter
[2025-09-07 10:47] VITALS: BP 126/90; PULSE 82; RESP 16; O2SAT 97; BMI 34.8
--- NOTE | 2025-09-07 10:47 | MHC.OFFVIS ---
Vital Signs 09/07/25 10:47 Height 5 ft 5 in Weight 209 lb BMI 34.8 BP 126/90 H Blood Pressure Location Lt radial Position Sitting Respiration 16 Pulse 82 Pulse Source Pulse Oximeter Pulse Oximetry (%) 97 Oxygen Delivery Method Room Air Intake Visit Reasons: 4 weeks with EB Chain Sales Consultant Required: No Allergies No Known Allergies (No Known Allergies*) Allergy (Verified 09/07/25 10:48) HPI Comments Details: Lucila is a 59-year-old female patient with a past medical history of anxiety, TMJ, insomnia, hypothyroid who follows in the clinic for chronic migraine headaches. She has tried numerous agents in the past and has been seeing Dr. Mehta since 2019. At the time of the our last visit together on 08/03/2025, Dr. Mehta suggested start up on Botox therapy for management of her chronic migraines. It is unclear if prior authorization process has been started. She in our meeting for the 1st time today and in gathering a headache history, she tells me that she has had chronic migraines for over 20 years and they really became more severe in 2018 when she 1st started seeing Dr. Mehta. She is currently experiencing daily headaches that vary in intensity but everyday she has some level of head pain. She has severe headaches at least 2-3 times per week lasting the entire day. The rest of the days during the week she still has headaches but they are less intense in severity. All of her headaches however are accompanied by light and sound sensitivity. When her headaches become more severe she does have accompanying nausea. She has at least 8 migraine days per month and the remainder of the days still has some level of headache. Headaches can either be unilateral or bilateral and typically present to the occipital area radiating to the parietal area. Headaches are typically throbbing. There was no significant positional component. She has tried several agents for headache management in the past including occipital nerve blocks which she recently had back in mid July with only minimal benefit. She has been using sumatriptan nearly daily for management of her headaches. She has been breaking her pill in half in efforts to space out her supply. Prior medications/therapies tried: Topiramate Propranolol Depakote Emgality Occipital nerve blocks [facility] Medical History (Updated 08/03/25 @ 09:43 by Jourdan Mehta MD) Anxiety Insomnia Hypothyroid Migraine headache Social History (System 11/13/22 @ 16:14 by Minnie Jaffe) Alcohol intake: never Patient Tobacco Use Status: Former Tobacco user Review of Systems Const All systems reviewed & are unremarkable except as noted in HPI and below Physical Exam Vital Signs: Last Vital Signs Pulse 82 09/07/25 10:47 Resp 16 09/07/25 10:47 BP 126/90 H 09/07/25 10:47 Pulse Ox 97 09/07/25 10:47 Oxygen Delivery Method Room Air 09/07/25 10:47 BMI result Body Mass Index 34.8 Const General: cooperative, healthy appearing, comfortable and no acute distress Nutritional Appearance: well nourished Orientation/consciousness: patient oriented x3 Limitations: no limitations HEENT Head: Yes normal to inspection and Yes normocephalic Eyes General: appearance normal, both eyes and all related structures Visual Mosqueda: normal visual mosqueda by confrontation Alignment and Position: alignment normal Periorbital: periorbital findings normal Eyelids: Yes eyelids normal Conjunctivae: conjunctivae normal Sclerae: sclerae normal Direct Ophthalmoscopy: normal light reflex Neck Neck: Yes normal visual inspection and Yes full ROM General: Yes no CVA tenderness Back/Spine/Pelvis Other: Severeb ilateral trapezius tightness Back: no CVA tenderness Cervical Spine: normal cervical lordosis Thoracic/Lumbar Spine: thoracic and lumbar spine normal to inspection Neuro General: patient oriented x3 and tone normal Cranial nerves: Yes CN's II-XII intact bilaterally and Yes Facial sensation intact/muscles of mastication intact Cognition (Neuro): normal cognition Gait exam (Neuro): Normal gait present Motor exam (neuro): no tremor noted Sensory Exam: double simultaneous stimulation for sensation normal Romberg Test: Negative Pupils: Normal pupillary reactivity/response: bilateral Psych Appearance: grossly normal Mental Status: mental status grossly normal Speech and movement: Normal speech and movement present and Clear speech present Affect: normal affect Attitude: cooperative Thought process: Normal thought process present Thought content: Normal thought content present Insight: Good insight present (Psych) Judgement: Good judgement present (Psych) Assessment & Plan Assessment & Plan (1) Migraine headache: Comment: Meds tried: Topiramate, propranolol, sumatriptan, verapamil, Depakote, Emgality MRI C spine at [place] in Jun 2024: C 5/6 central disc with flattening of cord but mod stenosis and no cord signal. MRI brain WWO at [place] in Aug 2023: R CP angle meningioma Code(s): G43.909 - Migraine, unspecified, not intractable, without status migrainosus Category: Medical Qualifiers: Migraine type: without aura Status migrainosus presence: without status migrainosus Intractability: not intractable Qualified Code(s): G43.009 - Migraine without aura, not intractable, without status migrainosus (2) Occipital neuralgia: Code(s): M54.81 - Occipital neuralgia Category: Medical Qualifiers: Laterality: bilateral Qualified Code(s): M54.81 - Occipital neuralgia Adan Gaytan is a 59-year-old female patient with a past medical history of anxiety, TMJ, insomnia, hypothyroid who follows in the clinic for chronic migraine headaches. With increased burden that she is currently experiencing with her chronic migraine, including the numerous failed medications that she has tried in the past, she is certainly a good candidate to start a trial of Botox therapy for management of chronic migraine. We do need to address her medication overuse but 1 of the best ways to approach this issue start a strong preventive therapy in efforts to wean them off if there abortive medication slowly until they are using no more than 2-3 days per week. -initiate prior authorization for Botox therapy and schedule patient once prior authorization has been completed -continue sumatriptan for abortive therapy for now but patient is educated on reducing the amount that she has been taking Coding Level of Care Code Est Pt Level 4 (07684) Diagnoses Migraine without aura and without status migrainosus, not intractable G43.009 Migraine type: without aura Status migrainosus presence: without status migrainosus Intractability: not intractable Bilateral occipital neuralgia M54.81 Laterality: bilateral
--- OUTSIDE RECORDS SUMMARY | 2025-09-07 12:22 | XMS_ITS | Encounter Summary ---
Author Organization [facility] Address [address] [place] [address] Care Team Providers Care Pelletising Extruder Operator Name Role Phone Jenelle Rosas MD Primary Care Prov ider Reason for Visit * Reason Onset Date Comments Clinical 09/07/2025 B12 orders Encounter Details Date Type Department Care Team ([facility] Contact Info) Description 09/07/2025 Telephone Adult Medicine [address] [phone] Mayra Rock [place] Social History Tobacco Use Types Packs/Day Years [...] for your loved ones. For example, child care nurse or elderly care for an older adult? [...] on file documented as of this encounter Progress Notes * Mayra Rock [place] - 09/07/2025 10:11 AM EST B12 active orders completed. Please sign new orders if appropriate. documented in this encounter Plan of Treatment Upcoming Encounters Date Type Department Care Team (Late st Contact Info) Description 10/05/2025 10:00 AM EST Clinical Support Adult [address] [place] [address] 10/17/2025 9:40 AM EST Appointment Radiology Department - [address] [phone] 12/06/2025 8:00 AM EST Office Visit Bariatric Surgery - [place] [address] [facility] [address] [place] [phone] Jasmine Kumar MD [address] [place] [phone] 02/27/2026 2:00 PM EDT Office Visit Adult Medicine [address] [phone] Jenelle Rosas MD [address] [place] [address] documented as of this encounter Visit Diagnoses Not on filedocumented in this encounter Additional Health Concerns Assessment Noted Time PHQ-9 Depression Total Score: 1 07/15/20 25 1:23 PM EDT documented as of this encounter Care Teams Pelletising Extruder Operator Relationship Specialty Start Date End Date Jenelle Rosas MD [address] [place] [address] PCP - General Internal Medicine 08/31/24 documented as of this encounter
--- OUTSIDE RECORDS SUMMARY | 2025-09-07 12:22 | XMS_ITS | Clinical Summary ---
Author Organization [facility] Address [address] [place] [address] Phone Care Team Providers Care Animal Breeder Name Role Phone Jenelle Verdugo MD Primary Care Prov ider Social History Tobacco Use Types Packs/Day Years Used Date Smoking Tobacco: Never Assessed Comments Unknown Sex and Gender Information Value Date Recorded Sex Assigned at Not on file Legal Sex Female 11:20 AM EDT Gender Identity Not on file Sexual Orientation Not on file Plan of Treatment Not on file Medical Devices Not on file Insurance [facility] MEDICARE PPO BLUE REPLACEMENT [address] [place] [address] MEDICARE PPO BLUE REPLACEMENT [place] MEDICARE PPO BLUE REPLACEMENT Care Teams Animal Breeder Relationship Specialty Start Date End Date Jenelle Verdugo MD [address] [place] [id number] PCP - General 04/05/24 Additional Source Comments The information contained in this document represents components of the legal health record. It is not the complete legal health record.[facility]
--- OUTSIDE RECORDS SUMMARY | 2025-09-07 12:23 | XMS_ITS | Encounter Summary ---
Author Organization [facility] Address [address] [place] [address] Care Team Providers Care Emergency Department Physician Name Role Phone Jenelle Rosas MD Primary Care Prov ider Encounter Details Date Type Department Care Team (Late st Contact Info) Description 04/07/2025 Lab Requisition [facility] - Main Lab [address] [facility] [place] [phone] Ember Peralta PA [address] [place] [address] Calculus of kidney Social History Tobacco Use [...] care for your loved ones. For example, childcare attendant or elderly care for an older adult? [...] 10:00 AM EST Clinical Support Adult Medicine [address] [phone] 10/17/2025 9:40 AM EST Appointment Radiology Department - [address] [phone] 12/06/2025 8:00 AM EST Office Visit Bariatric Surgery [facility] [address] [facility] [address] [place] [address] Jasmine Kumar MD [address] [place] [phone] 02/27/2026 2:00 PM EDT Office Visit Adult Medicine [facility] [address] [place], [place] [phone] Jenelle Rosas MD [address] [place] [address] documented as of this encounter Procedures Procedure Name Priority Date/Time Associated Diagnosis Comments PARATHYROID HORMONE INTACT Routine 04/07/2025 9:30 AM EDT Calculus of kidney documented in this encounter Results * Parathyroid hormone intact (04/07/2025 9:30 AM EDT) PTH 72.6 18.5 - 88.0 pcg/mL LAB CHEMISTRY METHOD 04/07/2025 1:[address] [facility] Blood Venous blood specimen / Unknown 04/07/2025 9:30 AM EDT 04/07/2025 12:33 PM EDT us Ember PEREZ LAB BLOOD ORDERABLES Final Res ult [facility] [address] [place] [address], documented in this encounter Visit Diagnoses Diagnosis Calculus of kidney documented in this encounter Additional Health Concerns Assessment Noted Time PHQ-9 Depression Total Score: 13 08/31/2 024 9:25 AM EST documented as of this encounter Care Teams Emergency Department Physician Relationship Specialty Start Date End Date Jenelle Rosas MD [address] [place] [address] PCP - General Internal Medicine 08/31/24 documented as of this encounter
--- OUTSIDE RECORDS SUMMARY | 2025-09-07 12:23 | XMS_ITS | Clinical Summary ---
Author Organization [facility] [address] [place] [address] Address [address] [facility] [place] Phone Care Team Providers Care Pharmacy Technician Per Diem Name Role Phone Jenelle Rosas MD Primary [...] MORNING 90 tablet 3 12/06/19 25 Active tirzepatide, weight loss, (Zepbound) 12.5 mg/0.5 mL injection Inject 0.5 mL (12.5 mg total) under the skin every 7 (seven) days. 2 mL 08/22/20 25 025 Active levothyroxine (SYNTHROID, LEVOTHROID) 125 mcg tablet TAKE 1 TABLET BY MOUTH EVERY DAY 90 tablet 1 08/22/20 Active levothyroxine (SYNTHROID, LEVOTHROID) 125 mcg tablet TAKE 1 TABLET BY MOUTH EVERY DAY 90 tablet 1 02/09/20 25 025 Discontinued tirzepatide, weight loss, (Zepbound) 10 mg/0.5 mL injection Inject 0.5 mL (10 mg total) under the skin every 7 (seven) days. 2 mL 07/24/20 25 025 Discontinued Hospital, Clinic, or Other Facility Administered Medication Ordered Dose Route Frequency Start Date End Date Status cyanocobalamin (VITAMIN B-12) injection 1,000 mcgIndications:Vitamin B12 deficiency disease 1000 mcg IM Every 30 days 03/03/2025 09/07/2025 Ended Active Problems Problem Noted Date Diagnosed Date Class 3 severe obesity with body mass index (BMI) of 40.0 to 44.9 in adult (CMS/[facility] V24, [facility] V28) 08/06/2024 Assessment & Plan (01/13/2025 12:25 [...] we can try ketotifen eyedrops which are [id number]. Migraine without status migrainosus, not intract able 02/02/2021 Overview (08/06/2024): Last Assessment & Plan: Continue Topamax for prevention, Imitrex as needed. COPD (chronic obstructive pu lmonary disease) ([facility] V24, [facility] V28) 01/22/2021 Overview (08/06/2024): Last Assessment & [...] Rehab; Future Depression, major, recurrent, in remission (CMS/ [facility] V24) 07/21/2014 Assessment & Plan (07/15/2025 1:54 [...] of hip 03/27/2009 Overview (08/06/2024): seen at [facility]. has gotten 2 cortisone [...] Encounters Date Type Department Care Team Description 09/07/2025 10:30 AM EST Clinical Support Adult Medicine [address] [phone] Vitamin B12 deficiency disease (Primary Dx) 09/07/2025 Telephone Adult Medicine [address] [phone] Mayra Rock [place] 08/18/2025 Telephone Bariatric Surgery [address] [phone] Jasmine Kumar MD 08/10/2025 10:15 AM EDT Clinical Support Adult [address] [phone] Vitamin B12 deficiency disease (Primary Dx) 07/22/2025 Telephone Bariatric Surgery [address] [phone] Jasmine Kumar MD 07/15/2025 1:15 PM EDT Office Visit Adult [address] [phone] Jenelle Rosas MD Hypothyroidism, unspecified type (Primary Dx); Chronic obstructive pulmonary disease with acute exacerbation (CMS/HCC V24, CMS/HCC V28); Depression, major, recurrent, in remission (CMS/HCC V24); Fibromyalgia; Screening for depression 07/13/2025 10:15 AM EDT Clinical Support [address] [phone] Vitamin B12 deficiency disease (Primary Dx) 06/30/2025 Telephone Bariatric Surgery - [address] [place] [address] Jasmine Kumar MD 06/15/2025 10:15 AM EDT Clinical Support [address] [phone] Vitamin B12 deficiency disease (Primary Dx) from [...] TUBAL LIGATION WRIST MASS EXCISION Right PROCEDURE: WI EXCISION GANGLION WRIST DORSAL/VOLAR PRIMARY ESOPHAGOGASTRODUODENOSCOPY 12/09/2007 PROCEDURE: WI EGD TRANSORAL BIOPSY SINGLE/MULTIPLE; COMMENT: H. pylori negative COLONOSCOPY 12/09/2007 PROCEDURE: HISTORICAL COLONOSCOPY; COMMENT: Bx: wnl. Small angiodysplasia of the cecum. NECK SURGERY 02/2008 PROCEDURE: HISTORICAL NECK SURGERY; COMMENT: cervical discectomy; nerve ablations KNEE ARTHROSCOPY W/ MENISCAL REPAIR 2013 Bilat eral PROCEDURE: WI ARTHROSCOPY KNEE W/MENISCUS RPR MEDIAL/LATERAL; COMMENT: OTTO's COLONOSCOPY 03/27/2018 PROCEDURE: HISTORICAL COLONOSCOPY; COMMENT: 7 mm ascending colon polyp: tubular adenoma. OTHER SURGICAL HISTORY 2007 PROCEDURE: WI ARTHRD ANT INTERBODY MIN DSC CRV BELOW C2; COMMENT: Sergio; Dr. Laws OTHER SURGICAL HISTORY 2013 PROCEDURE: WI ARTHRD ANT INTERBODY MIN DSC CRV BELOW C2; COMMENT: 2 surgeroies @ [facility]; Dr. Keys BREAST BIOPSY [...] 0 Q uit: 12/26/2016 Smokeless Tobacco: Never Tobacco [...] care for your loved ones. For example, director of early childhood education or elderly care for an older adult? [...] 10:00 AM EST Clinical Support Adult Medicine [address] [phone] 10/17/2025 9:40 AM EST Appointment Radiology Department [address] [phone] 12/06/2025 8:00 AM EST Office Visit Bariatric Surgery - [place] [address] [place] [address] Jasmine Kumar MD [address] [place] [phone] 02/27/2026 2:00 PM EDT Office Visit Adult Medicine [facility] [address] [place], [place] [phone] Jenelle Rosas MD [address] [place] [phone] Health Maintenance Due Date Last Done Comments Pneumococcal Vaccine: 50+ Years (1 of 2 - PCV) 1982 RSV Immunization Adult Patients (1 - Risk 50-74 years 1-dose series) 2013 Zoster Vaccines (1 of 2) 2013 Medicare Annual Wellness Visit 09/21/2022 COVID-19 Vaccine ( - season) 2025 10/18/2021, 02/15/2021, 01/18/2021 Social Influencers of Health Screening 08/31/2025 08/31/2024 Breast Cancer Screening 10/14/2026 10/14/19, 09/30/2023, 08/23/2022, Additional history exists Cervical Cancer [...] 01/17/2025 10:57 AM EDT Hypothyroidism, unspecified type MAMMO DIGITAL SCREENING W MAIK BILAT Routine [...] LAB CHEMISTRY METHOD 01/17/2025 4:31 PM EDT [facility] Triglycerides 198(H) 0 - 150 mg/dL LAB CHEMISTRY METHOD 01/17/2025 4:31 PM EDT [facility] HDL 67 >=40 mg/dL LAB CHEMISTRY METHOD 01/17/2025 4:31 PM EDT [facility] LDL Calculated 130(H) 0 - 100 mg/dL LAB CHEMISTRY METHOD 01/17/2025 4:31 PM EDT [facility] VLDL Cholesterol Richard 39.6 mg/dL LAB CHEMISTRY METHOD 01/17/2025 4:31 PM EDT [facility] Non HDL Chol. (LDL+VLDL) 170(H) <145 mg/dL LAB CHEMISTRY METHOD 01/17/2025 4:31 PM EDT [facility] Chol/HDL Ratio 3.5 0.0 - 4.4 LAB CHEMISTRY METHOD 01/17/2025 4:31 PM EDT [facility] Blood Venous blood specimen / Unknown Venipuncture / Unknown 01/17/2025 10:57 AM EDT 01/17/2025 10:57 AM EDT us eJnelle Rosas MD LAB BLOOD ORDERABL ES Final Result [facility] [address] [place] [address], [place] [phone] * MG Mammo Digital Screening w Maik bilat (10/14/2024 10:34 AM EST) Anatomical Region Laterality Modality Breast Bilateral Mammography 10/14/2024 1:04 PM EST Impressions 10/14/2024 1:08 PM EST Benign. BI-RADS CATEGORY: 2 - BENIGN RECOMMENDATION: Screening bilateral mammogram is recommended in 1 year. Mammo Location: [facility], [address] [place] [address], [id number], . -------- FINAL REPORT -------- Dictated By: Bruna Latif Dictated Date: 10/14/2024 13:04 ET Assigned Physician: Bruna Latif Reviewed and Electronically Signed By: Bruna Latif Signed Date: 10/14/2024 13:08 ET Workstation ID: [id number] Transcribed By: Self Edit Transcribed Date: 10/14/2024 [...] is recommended in 1 year. Mammo Location: [facility], [address] [place] [address], [id number], . -------- FINAL REPORT -------- Dictated By: Bruna Latif Dictated Date: 10/14/2024 13:04 ET Assigned Physician: Bruna Latif Reviewed and Electronically Signed By: Bruna Latif Signed Date: 10/14/2024 13:08 ET Workstation ID: [id number] Transcribed By: Self Edit Transcribed Date: 10/14/2024 13:04 ET Jenelle Rosas MD IMG BI PROCEDURES Final Result * Colonoscopy (02/09/2024) [facility] Colonoscopy no inerpretation , abstracted Anatomical Region Laterality Modality Other [facility] Provider HEALTH MAINTENANCE Final Result * Cervical Cancer Screening: HPV (06/21/2022) [facility] Cervical Cancer Screening: HPV negative,a bstracted [facility] Provider HEALTH MAINTENANCE Final Result * HIV Screening (12/30/2016) [facility] HIV Screening abstracted [facility] Provider HEALTH MAINTENANCE Final Result * Hepatitis C Screening (12/30/2016) [facility] Hepatitis C Screening abstracted [facility] Provider HEALTH MAINTENANCE Final Result from Last 3 Months or Most Recently Relevant to Health Maintenance Insurance [employer] - [place] MEDICARE ADVANTAGE Care Teams Pharmacy Technician Per Diem Relationship Specialty Start Date End Date Jenelle Rosas MD [address] [place] [address] PCP - General Internal Medicine 08/31/24
== END 2025-09-07 11:46 | disposition home or self-care (01) ==
LOC: HO.HSM 10:27
PROVIDERS: PCP Internal Medicine; Visit Provider Nurse Practitioner
DX: G43.009 Migraine without aura, not intractable, without status migrainosus (principal); M54.81 Occipital neuralgia
CPT/HCPCS: 99214